=== PATIENT | female | born 1965 | race Caucasian/White ===

== ENCOUNTER 2017-01-16 08:16 | Inpatient (IN) | payer OTHER ==
[2017-01-10 13:42] LABS: BASOPHILS % (AUTO) 0.2 % (0.0-2.0); EOSINOPHILS % (AUTO) 1.5 % (1.0-6.0); HEMATOCRIT 43.6 % (36-46); HEMOGLOBIN 14.2 g/dL (12.0-16.0); LYMPHOCYTES # (AUTO) 2.5 K/uL (1.0-4.8); MEAN CORPUSCULAR HEMOGLOBIN 29.5 pg (26.0-34.0); MEAN CORPUSCULAR HGB CONC 32.6 G/dL (31.0-37.0); MEAN CORPUSCULAR VOLUME 90 fL (80-100); MONOCYTES # (AUTO) 0.6 K/uL (0.1-1.0); MONOCYTES % (AUTO) 7.2 % (2.0-9.0); NEUTROPHILS # (AUTO) 4.6 K/uL (1.8-7.7); NEUTROPHILS % (AUTO) 59.1 % (40.0-70.0); PLATELET COUNT (AUTO) 231 K/uL (150-450); RED BLOOD CELL COUNT(AUTO) 4.83 MIL/uL (4.00-5.20); RED CELL DISTRIBUTION WIDTH 13.3 % (11.5-14.5); WHITE BLOOD COUNT (AUTO) 7.8 K/uL (4.5-11.0)
[2017-01-10 13:55] LABS: PROTHROMBIN TIME 10.1 SEC (9.4-11.6)
[~2017-01-16] VITALS: Ht 167.6 cm; Wt 87.3 kg
[~2017-01-16 08:16] MED LIST: ATOR20TA86 PO; BENA20 PO; CeFAZolin 2 GM/DEXTROSE 50 ML IV ONE; DULO30CA2 PO; GABA-531 PO; HUMLIS7525 SQ; INSLAN SQ; METF500T4 PO; PERCT10 PO; RINGERS SOLUTION,LACTATED 1,000 ML IV ONE
[2017-01-16] MEDS ORDERED: RINGERS SOLUTION,LACTATED 1,000 ML IV ONE (08:19)
[2017-01-16] MEDS ORDERED: CeFAZolin 2 GM/DEXTROSE 50 ML IV ONE (08:20)
[2017-01-16 09:03] LABS: GLUCOSE,POINT OF CARE 102 MG/DL (70-110)
[2017-01-16] MEDS ORDERED: ACETAMINOPHEN 1000 MG/ISO-OSM 100 ML IV ONE ×2 (09:04→09:05)
[2017-01-16] MEDS ORDERED: DiphenhydrAMINE HCL 50 MG/ML VIAL IVP PRN (09:45)
[2017-01-16] MEDS ORDERED: MAG HYDROX/AL HYDROX/SIMETH 30 ML SUSP UDCUP PO PRN (09:45)
[2017-01-16] MEDS ORDERED: BENZOCAINE/MENTHOL LOZENGE [8 LOZENGES/PACKET] PO PRN (09:45)
[2017-01-16] MEDS ORDERED: ZOLPIDEM TARTRATE 10 MG TABLET PO PRN (09:45)
[2017-01-16] MEDS ORDERED: OXYGEN THERAPY IH SCH (10:15)
[2017-01-16] MEDS ORDERED: MEPERIDINE-PF 25 MG/ML SYRINGE IVP PRN (10:15)
[2017-01-16] MEDS ORDERED: GABA-533 PO (10:41)
[2017-01-16] MEDS ORDERED: FentaNYL CITRATE-PF 100 MCG/2 ML VIAL ONE ×2 (11:20→11:43)
[2017-01-16] MEDS: FentaNYL CITRATE-PF 100 MCG/2 ML VIAL IVP PRN ×4 (11:22→11:56)
[2017-01-16] MEDS ORDERED: HYDROmorphone 2 MG/ML SYRINGE ONE ×2 (11:27→12:05)
[2017-01-16] MEDS ORDERED: RINGERS SOLUTION,LACTATED 500 ML IV ONE (11:29)
[2017-01-16] MEDS: HYDROmorphone 2 MG/ML SYRINGE IVP PRN ×9 (11:31→23:43)
[2017-01-16] MEDS ORDERED: NEOSTIGMINE METHYLSULFATE 1 MG/ML 10 ML VIAL IVP ONE (12:00)
[2017-01-16] MEDS ORDERED: PROPOFOL 1% 20 ML VIAL IVP ONE (12:00)
[2017-01-16] MEDS ORDERED: GLYCOPYRROLATE 0.2 MG/ML VIAL IM ONE (12:00)
[2017-01-16] MEDS ORDERED: ROCURONIUM BROMIDE 10 MG/ML 5 ML VIAL IVP ONE (12:00)
[2017-01-16] MEDS ORDERED: LIDOCAINE HCL/PF 2% 5 ML VIAL INJ ONE (12:00)
[2017-01-16] MEDS ORDERED: ONDANSETRON HCL 4 MG/2 ML VIAL IVP ONE (12:00)
[2017-01-16] MEDS ORDERED: HYDROmorphone 2 MG/ML SYRINGE IVP ONE (12:15)
[2017-01-16] MEDS ORDERED: DIAZEPAM 5 MG/ML 2 ML SYRINGE IVP ONE (12:15)
[2017-01-16 13:00] VITALS: BP 148/87
[2017-01-16] MEDS: ONDANSETRON HCL 4 MG/2 ML VIAL IVP PRN ×2 (13:10→19:22)
[2017-01-16 15:00] VITALS: BP 150/95
[2017-01-16 15:59] VITALS: BP 153/90
[2017-01-16] MEDS: INSULIN LISPRO PROTAM-LISPRO HUM 75/25 UNITS/ML SQ SCH (17:15)
[2017-01-16] MEDS: MetFORMIN HCL 500 MG TABLET PO SCH (17:30)
[2017-01-16 17:48] LABS: GLUCOSE,POINT OF CARE 124 MG/DL (70-110)
[2017-01-16 17:53] VITALS: BP 167/98
[2017-01-16] MEDS: BENAZEPRIL HCL 20 MG TABLET PO SCH (18:15)
[2017-01-16] MEDS: GABAPENTIN 400 MG CAPSULE PO SCH ×2 (18:16→23:42)
[2017-01-16] MEDS: ACETAMINOPHEN 1000 MG/ISO-OSM 100 ML IV SCH (18:16)
[2017-01-16 19:35] VITALS: BP 150/84
[2017-01-16] MEDS ORDERED: PROMETHAZINE HCL 25 MG/ML VIAL IM PRN (19:45)
[2017-01-16] MEDS: CYCLOBENZAPRINE HCL 10 MG TABLET PO SCH (20:57)
[2017-01-16] MEDS ORDERED: INSULIN GLARGINE,HUM.REC.ANLOG 100 UNITS/ML SQ SCH (21:00)
[2017-01-16] MEDS ORDERED: ATORVASTATIN CALCIUM 20 MG TABLET PO SCH (21:00)
[2017-01-16] MEDS: DULoxetine HCL 30 MG CAPSULE PO SCH (21:19)
[2017-01-16] MEDS: DOCUSATE SODIUM 100 MG CAPSULE PO SCH (21:19)
[2017-01-16] MEDS ORDERED: PNEUMOCOCCAL VACCINE POLYVALENT 0.5 ML VIAL [PPSV23] IM ONE (22:00)
[2017-01-16 22:22] LABS: GLUCOSE,POINT OF CARE 134 MG/DL (70-110)
[2017-01-16 23:43] VITALS: BP 129/69
[2017-01-17] MEDS: ACETAMINOPHEN 1000 MG/ISO-OSM 100 ML IV SCH ×2 (01:28→08:29)
[2017-01-17] MEDS: HYDROmorphone 2 MG/ML SYRINGE IVP PRN ×8 (01:36→15:29)
[2017-01-17 04:08] VITALS: BP 109/70
[2017-01-17 06:38] LABS: GLUCOSE,POINT OF CARE 130 MG/DL (70-110)
[2017-01-17] MEDS: ONDANSETRON HCL 4 MG/2 ML VIAL IVP PRN (07:41)
[2017-01-17 07:50] VITALS: BP 104/70
[2017-01-17] MEDS: GABAPENTIN 400 MG CAPSULE PO SCH (08:26)
[2017-01-17] MEDS: MetFORMIN HCL 500 MG TABLET PO SCH (08:27)
[2017-01-17] MEDS: DULoxetine HCL 30 MG CAPSULE PO SCH (08:27)
[2017-01-17] MEDS: BENAZEPRIL HCL 20 MG TABLET PO SCH (08:27)
[2017-01-17] MEDS: CYCLOBENZAPRINE HCL 10 MG TABLET PO SCH (08:28)
[2017-01-17] MEDS: DOCUSATE SODIUM 100 MG CAPSULE PO SCH (08:28)
[2017-01-17] MEDS ORDERED: SODIUM CHLORIDE 0.9% 500 ML IV ONE (08:31)
[2017-01-17] MEDS ORDERED: BISACODYL 5 MG EC TABLET PO SCH (09:00)
[2017-01-17 11:00] VITALS: BP 121/73
[2017-01-17] MEDS ORDERED: KETAMINE HCL 50 MG/ML 10 ML VIAL IVP ONE (12:00)
[2017-01-17] MEDS ORDERED: FentaNYL CITRATE-PF 100 MCG/2 ML VIAL IVP ONE (12:00)
[2017-01-17] MEDS ORDERED: MIDAZOLAM HCL 2 MG/2 ML VIAL IVP ONE (12:00)
[2017-01-17 12:12] LABS: GLUCOSE,POINT OF CARE 197 MG/DL (70-110)
[2017-01-17] MEDS: INSULIN LISPRO PROTAM-LISPRO HUM 75/25 UNITS/ML SQ SCH (12:43)
== END 2017-01-17 16:10 | disposition home or self-care (01) | DRG 473 ==
LOC: 4E 08:16
PROVIDERS: ADMIT Orthopaedic Surgery Orthopaedic Surgery of the Spine; ATTEND Orthopaedic Surgery Orthopaedic Surgery of the Spine
PROC: 0RB30ZZ Excision of Cervical Vertebral Disc, Open Approach (ICD-10-PCS; 2017-01-16)
PROC: 4A11X4G Monitoring of Peripheral Nervous Electrical Activity, Intraoperative, External Approach (ICD-10-PCS; 2017-01-16)
PROC: 0RG10K0 Fusion of Cervical Vertebral Joint with Nonautologous Tissue Substitute, Anterior Approach, Anterior Column, Open Approach (ICD-10-PCS; principal; 2017-01-16 11:30)
DX: M48.02 Spinal stenosis, cervical region (principal)
CPT/HCPCS: 82962; 87081; 93005; 97161; 97165; 97535; C1713; J0131; J0690; J1170; J1815; J2250; J2405; J2550; J2704; J3010; J3490; J7040; J7120